=== PATIENT | male | born 1975 | race Caucasian/White ===

== ENCOUNTER 2018-05-11 01:56 | Emergency (ER) | payer OTHER, SELFPAY ==
[2018-05-11 01:57] VITALS: BP 158/97; PULSE 74; RESP 18; TEMP 36.9; O2SAT 98; BMI 35.4
--- NOTE | 2018-05-11 02:17 | ED.VISSUMM ---
- ER Visit Summary Date of Service: 05/11/18 Chief Complaint: [] Left flank abdominal pain History of Present Illness: The patient is a 43 M with flank abdominal pain started 3 hours suddenly waxes and wanes sharp squeezing pain in his left flank current severity is mild to moderate. 2 out of 10 currently. Was more severe. Waxes and wanes. One episode of emesis in the department which helped tremendously. He took 2 aspirin just prior to coming in. He has never had a kidney stone. It is not reproducible. Physical Examination: [] Vital signs reviewed General: Well-nourished well-developed Head: Normocephalic atraumatic Eyes: Pupils equal round and reactive to light extraocular movements intact ENT: TMs clear no hemotympanum no trauma Neck: Nontender full range of motion Cardiovascular: Regular rate rhythm no murmurs normal S1-S2 Respiratory: No distress clear to auscultation bilaterally chest nontender Abdomen: Soft nontender nondistended normal bowel sounds no masses Back: Nontender no CVA tenderness Extremities: Nontender active range of motion ?4 extremities no trauma Skin: Normal color no trauma Neuro alert oriented cranial nerves II through XII intact normal strength sensation reflexes Test Results: [] Emergency Department Course and Treatment: [] Patient given IV fluids Toradol Zofran and lab work obtained. 30 minutes later the pains completely gone. He likely passed a kidney stone. Lab work shows chemistries with a chloride of 109. Positive blood in the urine only. At this time I think he passed a kidney stone. Discussed doing a CAT scan. I do not think this is indicated. He will follow-up with urology as needed. Dictated on kidney stones Treatment Plan: [] Disposition: [] Impression: [] Left flank pain suspected renal colic kidney stone This note was generated with [employer] dictation software. It may contain incorrect words, spelling, and punctuation that were not noted in review of the chart prior to signing ED Disposition - Plan for ED Patient: Chief Complaint: Abd Pain Referrals: Osvaldo Rousseau MD [Primary Care Provider] -
[2018-05-11] MEDS: Ondansetron 4 MG/2 ML Vial IV (02:23)
[2018-05-11] MEDS: Ketorolac 30 MG/ML Syringe IV (02:23)
[2018-05-11] MEDS: 0.9% Normal Saline 1,000 ML 250 ML IV (02:23)
[2018-05-11 02:26] LABS: Color, Urine Yellow (Yellow); Glucose, Dipstick Normal (Normal); Ketone-Dipstick Negative (Negative); Leukocyte Esterase-Dipstick 100 /ul (Negative); Nitrite-Dipstick Negative (Negative); Occult Blood-Urine 250 /ul (Negative); Protein-Dipstick 15 mg/dl (Negative); Urine Bilirubin Dipstick Negative (Negative); Urine Clarity Sl. Cloudy (Clear); Urine Urobilinogen Normal (Normal)
[2018-05-11 02:31] LABS: Bacteria RARE /hpf (None Seen); Mucous, Urine 2+ /hpf (<or=2+); Red Blood Cells-Urine 5-10 SEEN /hpf (0-5); Squamous Epithelial Cells - UA 0-5 SEEN /hpf (0-5)
[2018-05-11 02:32] LABS: White Blood Cells 0-5 SEEN /hpf (0-5)
[2018-05-11 02:33] LABS: Anion Gap 6 (5-15); BUN 13 mg/dL (7-18); BUN/Creat Ratio 10.1 RATIO (10-20); Calcium,Total 9.4 mg/dL (8.5-10.1); Chloride 109 mmol/L (98-107); Creatinine, Serum 1.29 mg/dL (0.70-1.30); EST Glomerular Filtration Rate 65 mL/min (>60); Est Glom Filt Rate - Afr Amer 79 mL/min (>60); Estimated Creatinine Clearance 77.81 ml/min; Glucose 135 mg/dL (74-106); Potassium 3.8 mmol/L (3.5-5.1); Sodium Level 142 mmol/L (136-145)
--- NOTE | 2018-05-11 02:43 | ED.DEP ---
ED Disposition - Plan for ED Patient: Disposition: Home or Assisted Living Chief Complaint: Abd Pain Instructions: Kidney Stones: Your Evaluation Prescriptions: Ondansetron [Zofran Odt] 4 mg PO Q8H PRN PRN #10 tab PRN Reason: Nausea Referrals: Osvaldo Rousseau MD [Primary Care Provider] - Elvie Ferrell MD [STAFF PHYSICIAN] -
[2018-05-11 02:58] VITALS: BP 119/74; PULSE 69; RESP 18; O2SAT 97
== END 2018-05-11 02:59 | disposition home or self-care (01) ==
PROVIDERS: Emergency Provider Emergency Medicine; Family Provider Family Medicine; PCP Family Medicine
DX: R10.9 Unspecified abdominal pain (principal); R11.2 Nausea with vomiting, unspecified; E66.9 Obesity, unspecified; Z72.0 Tobacco use
CPT/HCPCS: 80048; 81001; 96374; 99285; J7030; A4216; J2405

== ENCOUNTER 2020-02-15 15:55 | Emergency (ER) | payer OTHER, SELFPAY ==
[2020-02-15 15:56] VITALS: BP 147/91; PULSE 76; RESP 16; TEMP 36.1; TEMP 36.3; BMI 34.4
[2020-02-15 16:34] VITALS: RESP 16; O2SAT 98
--- NOTE | 2020-02-15 16:44 | ED.VISSUMM ---
- ER Visit Summary Date of Service: 02/15/20 Chief Complaint: Left knee pain History of Present Illness: The patient is a 44 M who presents with left knee pain that began today. Patient states he was at work when a lawn tractor started rolling. He attempted to stop the lawn tractor and it rolled over his left lower leg. Patient states the pain is worse over the medial aspect of his left knee. Patient states it feels like his knee wants to give out on him. Patient describes the pain is dull and throbbing. Patient states pain is worse with ambulation. Patient denies any paresthesias or weakness. Patient denies any other injuries. Physical Examination: Vital signs are stable. Patient is afebrile. Patient is in no acute distress. Musculoskeletal exam reveals tenderness over the medial aspect of the left knee. There is some mild laxity with valgus stress testing. There is no effusion. There is no bony crepitance or step-off. Range of motion was limited in all motions of the left knee secondary to pain. Brian's test was negative. Varus test was negative. Greg's test was negative. Posterior tibial pulses were equal bilaterally. There are no sensory deficits. Test Results: X-rays of the left knee were obtained. There is no acute fracture. This was interpreted by the radiologist and myself. Emergency Department Course and Treatment: Patient was given an ice pack. Patient was instructed to ice and elevate the left knee. Patient was given a left knee immobilizer. Patient was instructed to follow-up with [employer]. in 5 to 7 days. Patient was also given a referral for orthopedics. Patient was instructed to take Tylenol or ibuprofen as needed for pain. Patient understood and was agreeable with the plan. All questions were answered. Disposition: Discharge home Impression: Left knee sprain This note was generated with [employer] dictation software. It may contain incorrect words, spelling, and punctuation that were not noted in review of the chart prior to signing ED Disposition - Plan for ED Patient: Disposition: Home or Assisted Living Diagnosis: Left knee sprain Instructions: ED Sprain Knee Referrals: [facility] [Primary Care Provider] - 5-7 Days [facility] [GROUP OF PHYSICIANS] - 3-5 Days Vandana Sommer DO [STAFF PHYSICIAN] - 5-7 Days
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
== END 2020-02-15 19:28 | disposition home or self-care (01) ==
PROVIDERS: Emergency Provider Emergency Medicine
DX: S83.92XA Sprain of unspecified site of left knee, initial encounter (principal); V09.20XA Pedestrian injured in traffic accident involving unspecified motor vehicles, initial encounter; Y93.H9 Activity, other involving exterior property and land maintenance, building and construction; Y92.9 Unspecified place or not applicable; Y99.9 Unspecified external cause status
CPT/HCPCS: 73564; 94760; 99283

== ENCOUNTER → 2020-03-08 07:24 | Outpatient (CLI) | payer OTHER, SELFPAY ==
[2020-02-28 14:03] VITALS: BMI 34.4
--- NOTE | 2020-03-08 07:25 | MRI_ITS ---
HISTORY: LEFT KNEE INJURY 3 WEEKS AGOpain medial knee, unstable, unable to fully bend EXAMINATION: MR Knee W/O Contrast TECHNIQUE: Multiplanar and multisequence MR images of the left knee. IV Contrast dosage and agent: None. 203 images COMPARISON: X-rays from February 15, 2020 FINDINGS: BONE: Abnormal increased T2-weighted signal consistent with marrow edema is present within the lateral aspect of the lateral tibial plateau, anteriorly greater than medially. A similar amount but to a lesser degree of edema is present within the medial aspect of the medial tibial plateau away from the articular surface, but at the origin of the medial collateral ligament. A tiny amount of edema is also present on the posterior aspect of the medial tibial plateau near the insertion of the semimembranosus. JOINT: No pathologic effusion, synovial hypertrophy, or intra-articular body. MUSCLES: Unremarkable. MENISCI: The lateral meniscus is normal. Minimal intrasubstance myxoid degeneration versus incomplete partial tearing of the posterior horn of the meniscal attachment. CRUCIATE LIGAMENTS: The PCL is normal. There is minimal increased T2-weighted signal at the insertion of the ACL indicative perhaps of intrasubstance tearing or myxoid degeneration COLLATERAL LIGAMENTS: There is partial tearing at the origin of the medial collateral ligament. There is no avulsion of the ligament. Lateral collateral ligament is normal CARTILAGE: Cartilaginous surfaces are intact. OTHER SOFT TISSUES: Unremarkable. No popliteal cyst. MRI/Lower Ext Joint Only (Routine) IMPRESSION: Possible marrow edema from contusion to the anterior lateral aspect of the tibial plateau. Trace edema within the posterior medial aspect of the tibial plateau at the insertion of the semimembranosus with partial capsular tearing to posterior aspect of the posterior horn of medial meniscus adjacent to the semimembranosus. Partial tear to the origin of the medial collateral ligament. Minimal intrasubstance tearing versus myxoid degeneration at the insertion of the ACL without discontinuity of the ligament. at 0559 Reported and signed by: Alfonso Coelho MD Electronically Signed: Alfonso Coelho MD at 5:58 EDT Tel , Service support ,
== END ==
PROVIDERS: Referring Provider Orthopaedic Surgery; Visit Provider Orthopaedic Surgery
DX: S86.912A Strain of unspecified muscle(s) and tendon(s) at lower leg level, left leg, initial encounter (principal)
CPT/HCPCS: 73721